=== PATIENT | female | born 1970 | race Caucasian/White ===

== ENCOUNTER → 2021-05-27 | Outpatient (CLI) | payer BC ==
[~2021-05-27] VITALS: Ht 157.5 cm; Wt 62.7 kg
[~2021-05-27] MED LIST: BUPR300T43 PO; DOXY-233 PO; IBP600T1 PO; MULT-608 PO; OXYC-12 PO
== END | disposition home or self-care (01) ==
LOC: PREOP 09:42
PROVIDERS: ATTEND Surgery
DX: Z01.818 Encounter for other preprocedural examination (principal)

== ENCOUNTER → 2021-06-03 | Day surgery (SDC) | payer BC ==
[~2021-06-03] VITALS: Ht 157.5 cm; Wt 62.7 kg
[~2021-06-03] MED LIST changes: +LACTATED RINGERS 1,000 ML IV ONE; +LACTATED RINGERS 1,000 ML IV STA; +LIDOCAINE JELLY 2% 6 ML SYRINGE MM PRN; +MIDAZOLAM 2 MG/2 ML (VERSED) VIAL ONE; +ONDANSETRON 4 MG/2 ML (SDV) Z0FRAN IVP PRN; +PROPOFOL INJECTION 50 ML IV ONE; +proPOfol 200 MG/20 ML (DIPRIVAN) VIAL IV ONE
[2021-06-03 09:00] VITALS: BP 107/54
--- NOTE | 2021-06-03 10:44 | Progress Note-Pre Operative ---
Pre-Operative Progress Note H&P Reviewed The H&P was reviewed, patient examined and no changes noted. Date Seen by Provider: Jun 03, 2021 Time Seen by Provider: 10:00 Date H&P Reviewed: Jun 03, 2021 Time H&P Reviewed: 10:00 Pre-Operative Diagnosis: screening ISSA Leon MD Jun 03, 2021 10:44
--- NOTE | 2021-06-03 10:45 | Discharge Inst-Surgical ---
D/C Lap Instructions-GEETHA Follow Up Appt in 2 weeks Activity as tolerated High Fiber Diet 25g or more per day Avoid Alcohol, Caffeine, Spicy [place] and Acid foods. Drink 64 fluid oz or more of fluids per day. Symptoms to Report: Fever over 101 degree F, Nausea/Vomiting If any problems/questions: Contact your physician or go to Emergency Room ISSA INIGUEZ MD Jun 03, 2021 10:45
[2021-06-03 11:15] VITALS: BP 113/56
[2021-06-03 11:20] VITALS: BP 104/55
[2021-06-03 11:25] VITALS: BP 104/55
--- NOTE | 2021-06-03 11:28 | Progress Note-Post Operative ---
Post-Operative Progess Note Surgeon (s)/Lockstitch Cup Setter (s) Surgeon ISSA INIGUEZ MD Lockstitch Cup Setter: none Pre-Operative Diagnosis screening colo Post-Operative Diagnosis mild chronic stage 2 ext and int hemorrhoids, mild sigmoid diverticulosis. Procedure & Operative Findings Date of Procedure 06/03/21 Procedure Performed/Findings colonoscopy Anesthesia Type mac Estimated Blood Loss Estimated blood loss (mL): minimal Specimens/Packing Specimens Removed none ISSA INIGUEZ MD Jun 03, 2021 11:28
[2021-06-03 11:41] VITALS: BP 104/55
--- NOTE | 2021-06-03 12:47 | Anesthesia-General Post-Op ---
MAC Patient Condition Mental Status/LOC: Same as Preop Cardiovascular: Satisfactory Nausea/Vomiting: Absent Respiratory: Satisfactory Pain: Controlled Complications: Absent Post Op Complications Complications None Follow Up Care/Instructions Patient Instructions None needed. Anesthesiology Discharge Order Discharge Order Patient is doing well, no complaints, stable vital signs, no apparent adverse anesthesia problems. No complications reported per nursing. ROSI PEREZ CRNA Jun 03, 2021 12:47
--- NOTE | 2021-06-03 13:54 | OPERATIVE REPORT ---
DATE OF SERVICE: 06/03/2021 ATTENDING PRIMARY CARE PHYSICIAN: Dr. Stevan Llamas. PREOPERATIVE DIAGNOSIS: Screening colonoscopy. POSTOPERATIVE DIAGNOSES: Mild chronic stage II external and internal hemorrhoids, mild sigmoid diverticulosis. PROCEDURE: Colonoscopy. SURGEON: Issa Iniguez MD. ANESTHESIA: Monitored anesthesia care. ESTIMATED BLOOD LOSS: Minimal. FINDINGS: Mild chronic stage II external and internal hemorrhoids, mild sigmoid diverticulosis. DISPOSITION: The patient tolerated the procedure well. INDICATIONS: The patient is a 50-year-old female in need for screening colonoscopy. She has not had a colonoscopy up to this point in her life. She states she is otherwise doing well, does not report any major issues with diarrhea nor constipation as well as no red blood per rectum nor any dark tarry stools. She also does not report any family history of colon cancer. DESCRIPTION OF PROCEDURE: The patient was brought to the endoscopy suite, laid in left lateral decubitus position. After adequate IV pain and sedative medications and monitored anesthesia care, a digital rectal examination was performed. Mild chronic stage II external and internal hemorrhoids were identified, which were not actively edematous nor inflamed and no bleeding. Normal sphincter tone was felt and there were no palpable masses. The endoscope was then intubated and anus and rectum gently insufflated. The endoscope was then advanced through the valves of [place] of the rectum with no polyps or any neoplasms identified. Through the sigmoid colon, mild sigmoid diverticulosis was identified. The endoscope was then advanced to the remainder of the descending, transverse and ascending colon to the cecum. These segments were normal. No polyps or any neoplasms identified throughout the colon or rectum. The endoscope was then slowly withdrawn while taking a second look and suctioning of residual air with no additional findings. The patient tolerated the procedure well. We will recommend medical management with a high fiber diet through supplemental means and should encompass at least 25 grams daily as well as significant amounts of water to promote soft stools on a daily basis. If she is asymptomatic, she does not need another colonoscopy for another 10 years. Job ID: [id number] DocumentID: [id number] Dictated Date: 06/03/2021 11:16:49 Starter Cup Powder Mixer Date: 06/03/2021 13:53:41 Dictated By: ISSA INIGUEZ MD
== END ==
LOC: ENDO 08:44
PROVIDERS: ATTEND Surgery
DX: Z12.11 Encounter for screening for malignant neoplasm of colon (principal); K64.1 Second degree hemorrhoids; K57.30 Diverticulosis of large intestine without perforation or abscess without bleeding; F41.9 Anxiety disorder, unspecified; Z79.899 Other long term (current) drug therapy
CPT/HCPCS: 84703